=== PATIENT | male | born 1985 | race Caucasian/White ===

== ENCOUNTER 2020-10-11 16:01 | Inpatient (IN) | payer SELFPAY ==
[2020-10-11 16:46] LABS: #Basophils 0.1 thou/uL (0.0-0.2); #Eosinphils 0.1 thou/uL (0.0-0.7); #Lymphocytes 1.8 thou/uL (1.20-3.40); #Monocytes 0.6 thou/uL (0.11-0.59); #Neutrophils 8.3 thou/uL (1.40-6.50); %Basophils 0.8 % (0.0-1.0); %Eosinophils 1.1 % (0.0-10.0); %Lymphocytes 16.8 % (21.0-51.0); %Neutrophils 76.3 % (42.0-75.0); Hemoglobin 16.9 g/dL (14.0-18.0); Mean Corpuscular HGB CONC 35.4 g/dL (32.0-36.0); Mean Corpuscular Hemoglobin 34.4 pg (27.0-31.0); Mean Platelet Volume 7.9 fL (7.4-10.4); Platelet Count 268 thou/uL (130-400); RBC Distribution Width 11.9 % (11.5-14.5); Red Blood Cell (RBC) Count 4.91 mill/uL (4.70-6.10); White Blood Cell (WBC) Count 10.9 thou/uL (4.8-10.8)
[2020-10-11 16:58] LABS: Bilirubin 1+ (Negative); Blood, Urine Trace (Negative); Clarity Turbid (Clear); Glucose, Urine (Dipstick) Normal (Negative); Ketone, Urine 60 mg/dL (Negative); Leukocyte Negative Leu/uL (Negative); Nitrite Negative (Negative); Protein, Urine (Dipstick) 100 mg/dL (Neg-Trace); Specific Gravity, Urine 1.027 (1.002-1.036); pH, Urine 5.5 (5.0-9.0)
[2020-10-11 17:11] LABS: ALT (SGPT) 48 U/L (8-55); AST (SGOT) 34 U/L (5-34); Albumin 5.2 g/dL (3.5-5.0); Alkaline Phosphatase 74 U/L (40-110); Anion Gap 19 mmol/L (10-20); BUN (Urea Nitrogen) 12 mg/dL (8.9-20.6); Bilirubin, Total 1.3 mg/dL (0.2-1.2); Calc. Creatinine Clearance 0 mL/min (70-130); Calcium 10.3 mg/dL (7.8-10.44); Carbon Dioxide 22 mmol/L (22-29); Chloride 99 mmol/L (98-107); Globulin 3.8 g/dL (2.4-3.5); Glucose 102 mg/dL (70-105); Lipase 207 U/L (8-78); Potassium 3.7 mmol/L (3.5-5.1); Sodium 136 mmol/L (136-145)
[2020-10-11 17:13] LABS: RBC/HPF 0-3 HPF (0-3); Squamous Epithelial 0-3 HPF (0-3); WBC/HPF 0-3 HPF (0-3)
[2020-10-11 17:14] LABS: Bacteria/HPF Rare-Few HPF (None Seen)
[2020-10-11] MEDS ORDERED: Ondansetron PF 4 MG/2 ML Vial ONE (18:34)
[2020-10-11] MEDS ORDERED: Morphine 4 MG/ML VIAL ONE ×2 (18:34)
--- NOTE | 2020-10-11 20:20 | PDOC.HHP ---
Hospitalist HPI - History of Present Illness Nausea, epigastric pain History of Present Illness: This is a 35-year-old male patient with a history of pancreatitis and hyperlipidemia who presents with epigastric pain with nausea for about a days duration of 5 bouts of alcohol consumption. Patient has had a previous history of pancreatitis related to alcohol consumption several years ago. He notes having had epigastric pain anytime he drinks of alcohol but symptoms have been mild. This time the symptoms are quite severe leading him to come to the ED for further evaluation. He denies any vomiting but has nausea with eating. Denies diarrhea however has constipation. He notes that his stools appear dark brownish. He has not seen any blood in his stools. He denies dysuria or frequency. Also denies fevers headaches. At presentation his blood pressure was 146/97, pulse 103, temperature 99.5 sa turation 96 on room air. Labs showed mild leukocytosis of 10.9, bilirubin was 1.3 and lipase 207. Was diagnosed as mild acute pancreatitis, alcohol related and started on pain relief and IV fluids. Hospitalist team consulted for admission. Hospitalist ROS - Review of Systems Constitutional: denies: fever, chills, sweats, weakness Respiratory: denies: cough, shortness of breath, hemoptysis Gastrointestinal: reports: nausea, abdominal pain, constipation. denies: vomiting, diarrhea, melena Genitourinary: denies: dysuria, frequency, incontinence, hematuria Musculoskeletal: denies: neck pain Neurological: denies: weakness, numbness, incoordination All other systems reviewed; all pertinent +/- noted in HPI/Subj - Medication Medications: Medications: Currently refer to ambulatory list. Allergies: No known drug allergies Hospitalist History - Past Medical History Other Medical History: Pancreatitis - Past Surgical History Other Surgical History: None - Family History Family History: reports: diabetes mellitus - Social History Smoking Status: Current every day smoker Alcohol: reports: Occassional Living Situation: Alone Activity level: independent ambulation - Exam General Appearance: awake alert General - other findings: In no acute distress Eye: PERRL, anicteric sclera ENT: normocephalic atraumatic Heart: RRR, no murmur, no gallops, no rubs Respiratory: CTAB, no wheezes, no rales, no ronchi Gastrointestinal: soft, non-distended, normal bowel sounds, tender to palpation (Epigastric tenderness, no rebound tenderness or guarding) Gastrointestinal - other findings: Rectal exam, no tags or masses, brownish- green stools. Hemoccult sent Extremities: no cyanosis, no clubbing, no edema Neurological: cranial nerve grossly intact, no weakness Musculoskeletal: normal tone Psychiatric: normal affect, A&O x 3, oriented to person Hospitalist Results - Labs Result Diagrams: 10/11/20 16:35 10/11/20 16:35 Lab results: WBC 10.9 thou/uL (4.8-10.8) H 10/11/20 16:35 Hgb 16.9 g/dL (14.0-18.0) 10/11/20 16:35 Hct 47.7 % (42.0-52.0) 10/11/20 16:35 MCV 97.0 fL (78.0-98.0) 10/11/20 16:35 Plt Count 268 thou/uL (130-400) 10/11/20 16:35 Neutrophils % 76.3 % (42.0-75.0) H 10/11/20 16:35 Sodium 136 mmol/L (136-145) 10/11/20 16:35 Potassium 3.7 mmol/L (3.5-5.1) 10/11/20 16:35 Chloride 99 mmol/L (98-107) 10/11/20 16:35 Carbon Dioxide 22 mmol/L (22-29) 10/11/20 16:35 BUN 12 mg/dL (8.9-20.6) 10/11/20 16:35 Creatinine 0.92 mg/dL (0.7-1.3) 10/11/20 16:35 Glucose 102 mg/dL (70-105) 10/11/20 16:35 Calcium 10.3 mg/dL (7.8-10.44) 10/11/20 16:35 Total Bilirubin 1.3 mg/dL (0.2-1.2) H 10/11/20 16:35 AST 34 U/L (5-34) 10/11/20 16:35 ALT 48 U/L (8-55) 10/11/20 16:35 Alkaline Phosphatase 74 U/L (40-110) 10/11/20 16:35 Serum Total Protein 9.0 g/dL (6.0-8.3) H 10/11/20 16:35 Albumin 5.2 g/dL (3.5-5.0) H 10/11/20 16:35 Lipase 207 U/L (8-78) H 10/11/20 16:35 Urine Ketones 60 mg/dL (Negative) A 10/11/20 16:38 Urine Blood Trace (Negative) A 10/11/20 16:38 Urine Nitrite Negative (Negative) 10/11/20 16:38 Ur Leukocyte Esterase Negative Antoinette/uL (Negative) 10/11/20 16:38 Urine RBC 0-3 HPF (0-3) 10/11/20 16:38 Urine WBC 0-3 HPF (0-3) 10/11/20 16:38 Ur Squamous Epith Cells 0-3 HPF (0-3) 10/11/20 16:38 Urine Bacteria Rare-Few HPF (None Seen) 10/11/20 16:38 Hospitalist H&P A/P - Plan Plan: This is a 35-year-old male patient with a history of pancreatitis presenting with nausea epigastric pain suggestive of acute pancreatitis. Acute pancreatitis Lipase elevated at [address] not done We will do right upper quadrant ultrasound to rule out stones although this is likely alcohol-related Pain relief as needed IV fluids N.p.o.transition to clear liquid diet and escalate as tolerates. Consider GI consult in a.m. History of hyperlipidemia We will check lipid level VT prophylaxis Lovenox CODE STATUSfull code
[2020-10-11] MEDS: Sodium Chloride 0.9% 1,000 ML IV SCH (20:37)
[2020-10-11 21:07] VITALS: BMI 34.4
[2020-10-11] MEDS: Morphine 2 MG/ML VIAL SLOW IVP PRN (23:01)
[2020-10-11] MEDS: Ketorolac Tromethamine 30 MG/ML VIAL IVP SCH (23:01)
[2020-10-12] MEDS: Morphine 2 MG/ML VIAL SLOW IVP PRN ×3 (03:29→23:29)
[2020-10-12] MEDS: Sodium Chloride 0.9% 1,000 ML IV SCH ×3 (03:30→20:25)
[2020-10-12] MEDS: Ketorolac Tromethamine 30 MG/ML VIAL IVP SCH ×4 (05:06→23:30)
[2020-10-12 05:49] LABS: #Basophils 0.1 thou/uL (0.0-0.2); #Eosinphils 0.2 thou/uL (0.0-0.7); #Lymphocytes 2.7 thou/uL (1.20-3.40); #Monocytes 0.5 thou/uL (0.11-0.59); #Neutrophils 4.3 thou/uL (1.40-6.50); %Basophils 0.9 % (0.0-1.0); %Eosinophils 2.7 % (0.0-10.0); %Lymphocytes 34.8 % (21.0-51.0); %Monocytes 5.9 % (0.0-10.0); %Neutrophils 55.8 % (42.0-75.0); Hemoglobin 14.4 g/dL (14.0-18.0); Mean Corpuscular HGB CONC 34.1 g/dL (32.0-36.0); Mean Corpuscular Hemoglobin 33.5 pg (27.0-31.0); Mean Corpuscular Volume 98.3 fL (78.0-98.0); Mean Platelet Volume 7.9 fL (7.4-10.4); Platelet Count 232 thou/uL (130-400); Red Blood Cell (RBC) Count 4.31 mill/uL (4.70-6.10); White Blood Cell (WBC) Count 7.7 thou/uL (4.8-10.8)
[2020-10-12 06:21] LABS: Anion Gap 18 mmol/L (10-20); BUN (Urea Nitrogen) 13 mg/dL (8.9-20.6); Calc. Creatinine Clearance 220 mL/min (70-130); Calcium 9.1 mg/dL (7.8-10.44); Carbon Dioxide 21 mmol/L (22-29); Cardiac Risk 5.1 (Less than 4.5); Chloride 101 mmol/L (98-107); Cholesterol 169 mg/dl (< 200 Desired); Glucose 84 mg/dL (70-105); HDL Cholesterol 33 mg/dL (>60 Neg Risk); Potassium 3.8 mmol/L (3.5-5.1); Sodium 136 mmol/L (136-145); Triglycerides 592 mg/dL (Less than 150)
--- NOTE | 2020-10-12 07:36 | PDOC.HOSPP ---
- Subjective Encounter Date: 10/12/20 Encounter Time: 09:30 Subjective: Patient still having significant midepigastric pain. No nausea or vomiting. No other complaints. Patient states that he knows he needs to stop drinking alcohol. - Objective Vital Signs & Weight: Vital Signs (12 hours) Temp Pulse Resp BP Pulse Ox 10/12/20 03:21 98.2 F 77 16 143/88 H 97 10/11/20 23:46 98.4 F 85 16 133/82 96 10/11/20 20:57 98.5 F 83 16 135/82 95 Weight Weight 261 lb I&O: 10/11/20 10/12/20 10/13/20 06:59 06:59 06:59 Intake Total 1375 Balance 1375 Result Diagrams: 10/12/20 05:01 10/12/20 05:01 Hospitalist ROS - Review of Systems Constitutional: denies: fever, chills Respiratory: denies: cough, shortness of breath Cardiovascular: denies: chest pain, palpitations Gastrointestinal: reports: abdominal pain. denies: nausea, vomiting, diarrhea, constipation - Medication Medications: Active Medications Generic Name Dose Route Start Last Admin Trade Name Freq PRN Reason Stop Dose Admin Sodium Chloride 1,000 mls @ 125 mls/hr 10/11/20 20:00 10/12/20 03:30 Normal Saline 0.9% IV 1,000 mls .Q8H FABIOLA Administration Ketorolac Tromethamine 15 mg 10/11/20 23:59 10/12/20 05:06 Ketorolac Tromethamine 30 Mg/Ml Vial IVP 10/16/20 23:59 15 mg Q6HR FABIOLA Administration Morphine Sulfate 2 mg 10/11/20 19:57 10/12/20 03:29 Morphine 2 Mg/Ml Vial SLOW IVP 2 mg Q4H PRN Administration Pain - Exam General Appearance: NAD, awake alert ENT: moist mucosa Heart: RRR, no murmur, no gallops, no rubs Respiratory: CTAB, no wheezes, no rales, no ronchi Gastrointestinal: non-distended, normal bowel sounds Gastrointestinal - other findings: Tender to palpation in the midepigastric region with minimal guarding Extremities: no edema Psychiatric: normal affect, normal behavior, A&O x 3 Hosp A/P - Plan This is a 35-year-old male patient with a history of pancreatitis presenting with nausea epigastric pain suggestive of acute pancreatitis. Acute pancreatitis Lipase elevated at [address] not done, no indication at this time RUQ U/S with just fatty liver Pain relief as needed IV fluids N.p.o.transition to clear liquid diet when pain improves and escalate as tolerates. We will go ahead and consult GI as patient is still not tolerating diet. History of hyperlipidemia TG in 500s here needs to stop alcohol, and if still elevated will need fenofibrate VT prophylaxis Lovenox CODE STATUSfull code GALLBLADDER ULTRASOUND: INDICATION: Pancreatitis. FINDINGS: Gallbladder has a normal appearance. No evidence of gallstones. The common bile duct is normal caliber. The pancreas is mostly obscured. Visualized portions of the pancreas appear unremarkable with no evidence of peripancreatic edema or fluid. The liver is echogenic consistent with diffuse fatty infiltration. The liver is enlarged measuring up to 20 cm. Negative Cooley's sign is described. The right kidney is imaged and is unremarkable. IMPRESSION: 1. Hepatomegaly with echogenic liver suggesting diffuse fatty infiltration. 2. Gallbladder ultrasound otherwise unremarkable.
--- NOTE | 2020-10-12 08:23 | ULT ---
GALLBLADDER ULTRASOUND: INDICATION: Pancreatitis. FINDINGS: Gallbladder has a normal appearance. No evidence of gallstones. The common bile duct is normal jennifer matt. The pancreas is mostly obscured. Visualized portions of the pancreas appear unremarkable with no apoorva dence of peripancreatic edema or fluid. The liver is echogenic consistent with diffuse fatty infiltration. The liver is enlarged measuring u p to 20 cm. Negative Cooley's sign is described. The right kidney is imaged and is unremarkable. IMPRESSION: 1. Hepatomegaly with echogenic liver suggesting diffuse fatty infiltration. 2. Gallbladder ultrasound otherwise unremarkable. POS: OFF
[2020-10-12] MEDS ORDERED: FLU VACC QS2020-21(6MOS UP)/PF 60 MCG/0.5 ML SYRINGE IM ONE (09:00)
[2020-10-12] MEDS: Enoxaparin Sodium 40 MG/0.4 ML SYRINGE SC SCH (10:13)
[2020-10-12 14:22] LABS: SARS-CoV-2 PCR by NAA Not Detected (NotDetected)
[2020-10-12] MEDS ORDERED: Iopamidol-370 76% 500 ML 1 ML ONE (15:03)
--- NOTE | 2020-10-12 21:58 | CT ---
CT abdomen and pelvis with IV and oral contrast HISTORY: Abdominal pain. FINDINGS: The lung bases are clear. Liver is diffusely hypodense. There is very subtle stranding within the fat immediately surrounding the pancreas. No free fluid or fluid collections. A 0.2 cm calcification is present within a nondilated calyx at the inferior pole of the right kidney. Small cysts at the superior pole of each kidney, 0.8 cm on each side. No evidence of bowel obstruction or inflammation. Appendix normal. IMPRESSION : Very mild CT findings of non-complicated pancreatitis. Tiny nonobstructing right renal calculus.
--- NOTE | 2020-10-13 01:10 | CON ---
DATE OF CONSULTATION: 10/12/2020 SUBJECTIVE: Mr. Castañeda is a 35-year-old man who is admitted with epigastric pain. His pain gradually came on a couple of days ago and progressively worsened such that he came on to the emergency room after he had several episodes of nausea and vomiting at home. He was admitted to the hospital in [place] a year and a half ago and was diagnosed with pancreatitis secondary to alcohol. Since that time, he has had periodic episodes of epigastric pain with nausea that go on for a few days and gradually get better that he has been able to manage at home. Those episodes occurred every few months. This episode, however, was more severe, so he came on back to the hospital and was admitted. He has had no hematemesis. No diarrhea or constipation or blood in the stool. His weight has been stable. He still drinks alcohol about half a gallon over a 2-day period on the weekends. PAST MEDICAL HISTORY: Pancreatitis and alcohol abuse. PAST SURGICAL HISTORY: Negative. FAMILY HISTORY: Negative for GI malignancy or pancreatitis. SOCIAL HISTORY: He smokes half a pack a day. He drinks a couple days per week, but drinks up to half a gallon of liquor over a two day. He has used drugs in the past with last years ago. ALLERGIES: NO KNOWN DRUG ALLERGIES. MEDICATIONS: He takes ibuprofen occasionally at home maybe a couple of times per month. REVIEW OF SYSTEMS: Negative x10 systems reviewed except as stated in the History of Present Illness. PHYSICAL EXAMINATION: VITAL SIGNS: Temperature 98.4, pulse 73, blood pressure 158/93. GENERAL: He is in no acute distress. He is alert and oriented x3. HEENT: His eyes have no scleral icterus. His oropharynx is clear without lesions. No cervical or supraclavicular lymphadenopathy. LUNGS: Clear to auscultation bilaterally. HEART: Regular rate and rhythm without murmur. ABDOMEN: Soft. Mildly tender in the epigastric region. Bowel sounds are present. EXTREMITIES: No lower extremity edema. LABORATORY DATA: White blood cell count 7.7, hemoglobin 14.4, platelets 232, creatinine 0.8, bilirubin 1.3, AST 34, ALT 48, alkaline phosphatase 74, albumin 5.2, triglycerides 592, lipase 207. IMPRESSION: 1. Acute recurrent mild alcohol-induced pancreatitis. While this is the most likely cause of his epigastric pain in light of his past reported history of pancreatitis and alcohol abuse. His lipase is less than 3 times upper limit of normal, which could be due to more of a chronic pancreatitis rather than just acute recurrent. I do not have the labs and imaging to confirm the prior pancreatitis episode from a year and a half ago. This episode was in [place]. He cannot recall what facility he was admitted to. Given that his primary symptom now is epigastric pain, he has had some NSAID use, it is possible etiology. Given that his lipase is not truly reached the threshold for diagnostic criteria for pancreatitis to help confirm the diagnosis, I will check a CT scan of the abdomen and pelvis to assess for inflammatory changes. If this is negative, then we could consider upper endoscopy to complete the workup. RECOMMENDATIONS: 1. Proton pump inhibitor. 2. Alcohol cessation and smoking cessation were discussed. 3. We will check a CT scan of the abdomen and pelvis and consider upper endoscopy if this is negative. Overall, it is still most likely that he has acute alcohol-induced pancreatitis, which is mild. It is noted that his triglycerides are 592, however, typically pancreatitis will not occur unless the triglycerides are over a 1000 for a triglyceride-induced pancreatitis. Job ID: [id number]
[2020-10-13] MEDS: Sodium Chloride 0.9% 1,000 ML IV SCH ×3 (03:28→20:43)
[2020-10-13] MEDS: Morphine 2 MG/ML VIAL SLOW IVP PRN (05:04)
[2020-10-13] MEDS: Ketorolac Tromethamine 30 MG/ML VIAL IVP SCH ×4 (05:05→23:22)
[2020-10-13] MEDS ORDERED: Ondansetron PF 4 MG/2 ML Vial IVP PRN (06:01)
[2020-10-13 06:46] LABS: #Eosinphils 0.2 thou/uL (0.0-0.7); #Lymphocytes 1.8 thou/uL (1.20-3.40); #Monocytes 0.5 thou/uL (0.11-0.59); #Neutrophils 4.9 thou/uL (1.40-6.50); %Basophils 0.4 % (0.0-1.0); %Eosinophils 3.2 % (0.0-10.0); %Lymphocytes 23.9 % (21.0-51.0); %Monocytes 6.7 % (0.0-10.0); %Neutrophils 65.7 % (42.0-75.0); Hemoglobin 13.9 g/dL (14.0-18.0); Mean Corpuscular Hemoglobin 34.4 pg (27.0-31.0); Mean Corpuscular Volume 98.4 fL (78.0-98.0); Platelet Count 216 thou/uL (130-400); RBC Distribution Width 11.8 % (11.5-14.5); Red Blood Cell (RBC) Count 4.02 mill/uL (4.70-6.10); White Blood Cell (WBC) Count 7.4 thou/uL (4.8-10.8)
--- NOTE | 2020-10-13 07:17 | PDOC.HOSPP ---
- Subjective Encounter Date: 10/13/20 Encounter Time: 09:40 Subjective: Patient reports marked improvement in midepigastric pain. Is feeling comfortable right now. Has not tried eating anything yet. - Objective Vital Signs & Weight: Vital Signs (12 hours) Temp Pulse Resp BP Pulse Ox 10/13/20 05:08 71 141/92 H 10/13/20 04:46 98.1 F 69 16 168/113 H 98 10/12/20 23:29 98 F 73 16 154/93 H 97 10/12/20 19:25 98.4 F 73 16 158/93 H 97 Weight Admit Weight 261 lb Weight 261 lb I&O: 10/12/20 10/13/20 10/14/20 06:59 06:59 06:59 Intake Total 1375 3720 Output Total 300 Balance 1375 3420 Result Diagrams: 10/13/20 05:39 10/13/20 05:39 Hospitalist ROS - Review of Systems Constitutional: denies: fever, chills Respiratory: denies: cough, shortness of breath Cardiovascular: denies: chest pain, palpitations Gastrointestinal: denies: nausea, vomiting, abdominal pain - Medication Medications: Active Medications Generic Name Dose Route Start Last Admin Trade Name Freq PRN Reason Stop Dose Admin Enoxaparin Sodium 40 mg 10/12/20 09:00 10/12/20 10:13 Enoxaparin Sodium 40 Mg/0.4 Ml Syringe SC 40 mg 0900 FABIOLA Administration Sodium Chloride 1,000 mls @ 125 mls/hr 10/11/20 20:00 10/13/20 03:28 Normal Saline 0.9% IV 1,000 mls .Q8H FABIOLA Administration Ketorolac Tromethamine 15 mg 10/11/20 23:59 10/13/20 05:05 Ketorolac Tromethamine 30 Mg/Ml Vial IVP 10/16/20 23:59 15 mg Q6HR FABIOLA Administration Morphine Sulfate 2 mg 10/11/20 19:57 10/13/20 05:04 Morphine 2 Mg/Ml Vial SLOW IVP 2 mg Q4H PRN Administration Pain - Exam General Appearance: NAD, awake alert ENT: moist mucosa Heart: RRR, no murmur, no gallops, no rubs Respiratory: CTAB, no wheezes, no rales, no ronchi Gastrointestinal: soft, non-distended, normal bowel sounds, tender to palpation. negative: no guarding, no rigidity Gastrointestinal - other findings: Midepigastric region Extremities: no edema Psychiatric: normal affect, normal behavior, A&O x 3 Hosp A/P - Plan This is a 35-year-old male patient with a history of pancreatitis presenting with nausea epigastric pain suggestive of acute pancreatitis. Acute pancreatitis Lipase elevated at 207 with epigastric pain RUQ U/S with just fatty liver CT with mild pancreatitis and tiny non-obstructing renal stone Pain relief as needed IV fluids N.p.o.transition to clear liquid diet now that pain has improved and advance as tolerated. Appreciate Dr. Alberts's assistance. He is considering upper endoscopy. History of hyperlipidemia TG in 500s here needs to stop alcohol, and if still elevated will need fenofibrate -Alcohol abuse Patient has been advised that he must quit alcohol VT prophylaxis Lovenox CODE STATUSfull code GALLBLADDER ULTRASOUND: INDICATION: Pancreatitis. FINDINGS: Gallbladder has a normal appearance. No evidence of gallstones. The common bile duct is normal caliber. The pancreas is mostly obscured. Visualized portions of the pancreas appear unremarkable with no evidence of peripancreatic edema or fluid. The liver is echogenic consistent with diffuse fatty infiltration. The liver is enlarged measuring up to 20 cm. Negative Cooley's sign is described. The right kidney is imaged and is unremarkable. IMPRESSION: 1. Hepatomegaly with echogenic liver suggesting diffuse fatty infiltration. 2. Gallbladder ultrasound otherwise unremarkable. CT abdomen and pelvis with IV and oral contrast HISTORY: Abdominal pain. FINDINGS: The lung bases are clear. Liver is diffusely hypodense. There is very subtle stranding within the fat immediately surrounding the pancreas. No free fluid or fluid collections. A 0.2 cm calcification is present within a nondilated calyx at the inferior pole of the right kidney. Small cysts at the superior pole of each kidney, 0.8 cm on each side. No evidence of bowel obstruction or inflammation. Appendix normal. IMPRESSION : Very mild CT findings of non-complicated pancreatitis. Tiny nonobstructing right renal calculus.
[2020-10-13 07:27] LABS: ALT (SGPT) 42 U/L (8-55); AST (SGOT) 30 U/L (5-34); Alkaline Phosphatase 55 U/L (40-110); Anion Gap 17 mmol/L (10-20); BUN (Urea Nitrogen) 12 mg/dL (8.9-20.6); Calc. Creatinine Clearance 241 mL/min (70-130); Calcium 8.6 mg/dL (7.8-10.44); Carbon Dioxide 20 mmol/L (22-29); Chloride 104 mmol/L (98-107); Globulin 2.7 g/dL (2.4-3.5); Glucose 80 mg/dL (70-105); Potassium 3.5 mmol/L (3.5-5.1); Protein, Total 6.7 g/dL (6.0-8.3); Sodium 137 mmol/L (136-145)
[2020-10-13] MEDS: Enoxaparin Sodium 40 MG/0.4 ML SYRINGE SC SCH (10:03)
--- NOTE | 2020-10-13 13:41 | PRG ---
DATE OF SERVICE: 10/13/2020 SUBJECTIVE: Mr. Castañeda feels better. He has no significant abdominal pain today. No nausea. PHYSICAL EXAMINATION: VITAL SIGNS: Temperature 98.3, pulse 75, blood pressure 142/91. GENERAL: He is in no acute distress. Alert and oriented x3. LUNGS: Clear to auscultation bilaterally. HEART: Regular rate and rhythm without murmur. ABDOMEN: Soft, nontender, nondistended. Bowel sounds are present. EXTREMITIES: No lower extremity edema. LABORATORY DATA: White blood cell count 7.4, hemoglobin 13.5, platelets 216. Albumin 4.0, creatinine 0.73. IMPRESSION: Mild alcohol-induced pancreatitis. He appears to have some degree of more of chronic pancreatitis given the only mild elevation of his lipase; however, the diagnosis is confirmed with clinical picture plus inflammatory changes noted by CT scan plus the lipase a little over two times upper limit of normal. RECOMMENDATIONS: 1. Clear liquid diet for lunch. 2. If he tolerates that well, then he can start a low-fat solid diet for supper. 3. He can discharge home once he is tolerating his diet adequately. 4. Again, counseled regarding alcohol and smoking cessation. 5. I will sign off. Please call if GI can be of assistance. Job ID: [id number]
[2020-10-13 23:27] VITALS: TEMP 98.2
[2020-10-14] MEDS: Sodium Chloride 0.9% 1,000 ML IV SCH (04:36)
[2020-10-14] MEDS: Ketorolac Tromethamine 30 MG/ML VIAL IVP SCH (05:02)
[2020-10-14] MEDS: Enoxaparin Sodium 40 MG/0.4 ML SYRINGE SC SCH (08:52)
[2020-10-14 10:27] VITALS: BP 142/89
--- NOTE | 2020-10-14 16:07 | PDOC.DS.DS ---
Provider - Provider Date of Admission: 10/11/20 18:43 Date of Discharge: 10/14/20 Admitting Provider: Jose Miguel Washington MD Consultations: Gastroentrology Primary Care Physician: Unknown Course - Hospital Course Hospital Course: Patient is a 35-year-old male with history of pancreatitis in the past presented to the hospital with nausea along with epigastric pain. His work-up was consistent with acute pancreatitis. CT scan of the abdomen and pelvis showed findings consistent with noncomplicated pancreatitis. Right upper quadrant ultrasound was negative for gallbladder pathology or biliary duct dilatation. It showed hepatomegaly with diffuse fatty infiltration. He was evaluated by gastroenterology. His symptoms have significantly improved with conservative measures. He has been started on oral diet which he is tolerating well. He ap pears stable for discharge. He also was found to have dyslipidemia with triglyceride of 592, cholesterol of 169 and HDL of 33. Repeat lipid profile after 4 weeks as outpatient is recommended. He was counseled on alcohol cessation. Final diagnosis: Acute alcoholic pancreatitis Dyslipidemia Nonobstructing right renal calculus Fatty liver Dehydration on admission Abnormal LFTs on admissionresolved Obesity with a BMI 34.5 Resuscitation Status: 10/11/20 19:53 Resuscitation Status Routine Resuscitation Status: FULL: Full Resuscitation - Labs Lab Results: 10/13/20 05:39 10/13/20 05:39 Abnormal Lab Results - Last 48 hrs 10/13/20 05:39: RBC 4.02 L, Hgb 13.9 L, Hct 39.6 L, MCV 98.4 H, MCH 34.4 H 10/13/20 05:39: Carbon Dioxide 20 L Microbiology - Entire Visit 10/11/20 19:41 Stool - Pending Stool Occult Blood (RAMSES) - Final - Physical Exam Vitals: Vital Signs (12 hours) Temp Pulse Resp BP Pulse Ox 10/14/20 10:26 98.2 F 76 16 142/89 H 97 10/14/20 07:38 98.2 F 79 18 156/96 H 98 Weight Admit Weight 261 lb Weight 261 lb Physical Exam: The patient was seen and examined on the day of discharge. Plan - Discharge Medications Prescriptions: Folic Acid [Folvite] 1 mg PO DAILY #30 tab Multivitamin [Multi-Vitamin Daily] 1 tablet PO DAILY #30 tablet Thiamine 100 mg PO DAILY #30 tab Home Medications: Medication Instructions Recorded Confirmed Type Folic Acid [Folvite] 1 mg PO DAILY #30 tab 10/14/20 Rx Multivitamin [Multi-Vitamin Daily] 1 tablet PO DAILY #30 tablet 10/14/20 Rx Thiamine 100 mg PO DAILY #30 tab 10/14/20 Rx Allergies: No Known Allergies Allergy (Unverified 10/11/20 20:05) - Discharge Instructions Discharge Instructions:: Lipid profile after 4 weeks - PCP to arrange and follow - Follow up Plan Referrals: [facility] [MD Not on Staff] - 3 Days Tcio Alberts MD [Active] - Disposition: HOME Quality - Care Measures CORE MEASURES:: N/A
== END 2020-10-14 10:30 | disposition home or self-care (01) | DRG 440 ==
LOC: ERS 16:01 → SURG A 18:43
PROVIDERS: ADMIT Internal Medicine; ATTEND Internal Medicine
DX: K85.20 Alcohol induced acute pancreatitis without necrosis or infection (principal); E78.5 Hyperlipidemia, unspecified; N20.0 Calculus of kidney; K76.0 Fatty (change of) liver, not elsewhere classified; E86.0 Dehydration; E66.9 Obesity, unspecified; Z20.822 Contact with and (suspected) exposure to COVID-19; F10.10 Alcohol abuse, uncomplicated; F17.210 Nicotine dependence, cigarettes, uncomplicated; Z68.34 Body mass index [BMI] 34.0-34.9, adult
CPT/HCPCS: 36415; 74177; 76705; 80048; 80053; 80061; 81003; 81015; 82274; 83690; 85025; 87635; 90471; 90662; 90732; 96374; 96375; G0008; G0009; J1650; J1885; J2270; J2405; Q9967; U0003; U0005

== ENCOUNTER 2024-10-07 08:18 | Outpatient (CLI) | payer BC | END 2024-10-07 08:19 | disposition home or self-care (01) | LOC: ULT 08:18 | PROVIDERS: ATTEND Registered Nurse | DX: R79.89 Other specified abnormal findings of blood chemistry (principal); K76.0 Fatty (change of) liver, not elsewhere classified | CPT/HCPCS: 76705 ==